=== PATIENT | male | born 1985 | race Caucasian/White ===

== ENCOUNTER 2017-05-21 00:27 | Emergency (ER) | payer BC ==
[~2017-05-21] VITALS: Ht 167.6 cm; Wt 72.1 kg
[2017-05-21 00:31] VITALS: BP 117/77
[2017-05-21] MEDS ORDERED: CHINESE HERBS (01:32)
[2017-05-21] MEDS ORDERED: LIDOCAINE 1%, 20ML SQ ONE (02:00)
[2017-05-21] MEDS ORDERED: BUPIVACAINE/PF-EPI 0.25% 1:200K SQ ONE (02:00)
[2017-05-21] MEDS ORDERED: BUPIVACAINE 0.25% ONE (02:08)
[2017-05-21] MEDS ORDERED: LIDOCAINE 1%, 10ML ONE (02:08)
== END 2017-05-21 04:01 | disposition home or self-care (01) ==
LOC: ED 03:05
DX: L03.012 Cellulitis of left finger (principal)
CPT/HCPCS: 10060; 99283